=== PATIENT | female | born 1950 | race Caucasian/White ===

== ENCOUNTER 2017-05-15 10:42 | Day surgery (SDC) | payer MEDICARE, OTHER ==
[~2017-05-15] VITALS: Ht 160 cm; Wt 112.5 kg
[~2017-05-15 10:42] MED LIST: HYDR1TAB94 PO
[2017-05-15] MEDS ORDERED: LOSA50 PO (11:20)
== END 2017-05-15 13:38 | disposition home or self-care (01) ==
LOC: ORSCSDS 10:42
DX: Z12.11 Encounter for screening for malignant neoplasm of colon (principal); K63.5 Polyp of colon; K64.4 Residual hemorrhoidal skin tags; K64.8 Other hemorrhoids; K57.30 Diverticulosis of large intestine without perforation or abscess without bleeding; Z86.010 Personal history of colon polyps; I10 Essential (primary) hypertension; Z79.899 Other long term (current) drug therapy
CPT/HCPCS: 88305

== ENCOUNTER → 2017-08-06 | Outpatient (CLI) | payer MEDICARE, OTHER ==
[~2017-08-06] MED LIST changes: +LOSA50 PO
== END | disposition home or self-care (01) ==
LOC: PLD 15:37 → LAB SHORT 15:37
DX: L82.1 Other seborrheic keratosis (principal)
CPT/HCPCS: 88305

== ENCOUNTER → 2018-09-13 | Outpatient (CLI) | payer MEDICARE, OTHER | END | disposition home or self-care (01) | LOC: LAB SHORT 14:08 → PLD 14:08 | DX: D22.5 Melanocytic nevi of trunk (principal) | CPT/HCPCS: 88305 ==

== ENCOUNTER 2019-06-17 12:29 | Day surgery (SDC) | payer MEDICARE, OTHER ==
[~2019-06-17] VITALS: Ht 157.5 cm; Wt 100.0 kg
[2019-06-17] MEDS ORDERED: GLIPIZIDE ER2.5 MG PO ×2 (13:12→13:13)
[2019-06-17] MEDS ORDERED: METF500 (13:13)
== END 2019-06-17 18:32 | disposition home or self-care (01) ==
LOC: ORSCSDS 12:29
PROVIDERS: Podiatrist Foot & Ankle Surgery
PROC: 0QSH04Z Reposition Left Tibia with Internal Fixation Device, Open Approach (ICD-10-PCS; principal; 2019-06-17 14:15)
PROC: 0QSK04Z Reposition Left Fibula with Internal Fixation Device, Open Approach (ICD-10-PCS; principal; 2019-06-17 14:15)
DX: S82.842A Displaced bimalleolar fracture of left lower leg, initial encounter for closed fracture (principal); I10 Essential (primary) hypertension; E11.9 Type 2 diabetes mellitus without complications; Z79.84 Long term (current) use of oral hypoglycemic drugs; E66.01 Morbid (severe) obesity due to excess calories; Z68.41 Body mass index [BMI] 40.0-44.9, adult; Z79.899 Other long term (current) drug therapy
CPT/HCPCS: 82947; C1713; J0171; J0690; J1100; J1885; J2250; J2370; J2405; J2704; J3010; J7120

== ENCOUNTER → 2019-09-21 | Outpatient (CLI) | payer MEDICARE, OTHER ==
[~2019-09-21] MED LIST changes: +GLIPIZIDE ER2.5 MG PO; +METF500
== END | disposition home or self-care (01) ==
LOC: LAB SHORT 12:31 → LAB 12:31 → PLD 12:31
DX: D48.5 Neoplasm of uncertain behavior of skin (principal)
CPT/HCPCS: 88305

== ENCOUNTER 2019-12-30 06:32 | Day surgery (SDC) | payer MEDICARE, OTHER ==
[~2019-12-30] VITALS: Ht 157.5 cm; Wt 101.5 kg
--- NOTE | 2019-12-30 10:25 | NUR ---
12/30/19 1025 Christina Austin REPORT GIVEN TO [facility] [place].
== END 2019-12-30 10:49 | disposition home or self-care (01) ==
LOC: ORSCSDS 06:32
PROVIDERS: Podiatrist Foot & Ankle Surgery
PROC: 0SGL04Z Fusion of Left Tarsometatarsal Joint with Internal Fixation Device, Open Approach (ICD-10-PCS; principal; 2019-12-30 07:30)
PROC: 0QSR04Z Reposition Left Toe Phalanx with Internal Fixation Device, Open Approach (ICD-10-PCS; principal; 2019-12-30 07:30)
DX: M20.12 Hallux valgus (acquired), left foot (principal); I10 Essential (primary) hypertension; E11.9 Type 2 diabetes mellitus without complications; G47.33 Obstructive sleep apnea (adult) (pediatric); E66.01 Morbid (severe) obesity due to excess calories; Z68.41 Body mass index [BMI] 40.0-44.9, adult; Z79.899 Other long term (current) drug therapy; Z79.84 Long term (current) use of oral hypoglycemic drugs
CPT/HCPCS: 82947; C1713; C1776; J0171; J0690; J1100; J2250; J2405; J2704; J3010; J7120; U0002

== ENCOUNTER → 2020-03-15 | Outpatient (CLI) | payer MEDICARE, OTHER ==
[2020-03-15 11:13] LABS: Microalb/Creat Ratio UR, Rand Unable to Calculate mg/g (0.000-30.000); Microalbumin, Random Urine <5.000 mg/L (0.000-20.000)
== END ==
LOC: LAB 09:19 → LAB SHORT 09:19
PROVIDERS: Family Medicine
DX: E11.9 Type 2 diabetes mellitus without complications (principal)
CPT/HCPCS: 82043; 82570